=== PATIENT | female | born 1985 | race Caucasian/White ===

== ENCOUNTER 2023-11-28 17:45 | Emergency (ER) | payer BC, OTHER ==
[2023-11-28 17:50] VITALS: BP 133/85; PULSE 113; RESP 16; TEMP 98.1
--- NOTE | 2023-11-28 17:54 | ED ---
ENT HPI - General Chief complaint: Dental/Oral Stated complaint: sore throat, fever Time Seen by Provider: 11/28/23 17:54 Source: patient, RN notes reviewed Mode of arrival: ambulatory Limitations: no limitations - History of Present Illness Initial comments: This is a 37-year-old female presents emergency department chief complaint of sore throat for the past 2 days. Patient states that she has also been experiencing a dry cough during the night and bilateral extremity testing as well. She denies congestion, rhinorrhea, productive cough, fevers, or chills. She denies urinary symptoms, dysuria, chest pain, headache, nausea, or vomiting. Patient states that she feels that she may have strep throat. She took a dose of Motrin this morning with minimal relief. No other acute complaints at this time. - Related Data Allergies Allergy/AdvReac Type Severity Reaction Status Date / Time amoxicillin Allergy Rash/Hives Verified 11/28/23 17:47 Review of Systems ROS Statement: Those systems with pertinent positive or pertinent negative responses have been documented in the HPI. ROS Other: All systems not noted in ROS Statement are negative. Past Medical History Past Medical History: No Reported History History of Any Multi-Drug Resistant Organisms: None Reported Past Surgical History: Appendectomy Past Psychological History: No Psychological Hx Reported Smoking Status: Current some day smoker, Vaper Past Alcohol Use History: Occasional Past Drug Use History: None Reported General Exam Limitations: no limitations General appearance: alert, in no apparent distress Head exam: Present: atraumatic, normocephalic, normal inspection Eye exam: Present: normal appearance, PERRL, EOMI. Absent: scleral icterus, conjunctival injection, periorbital swelling Expanded Mouth exam: Present: normal external inspection Throat exam: tonsillomegaly, tonsillar exudate Neck exam: Present: lymphadenopathy Respiratory exam: Present: normal lung sounds bilaterally. Absent: respiratory distress, wheezes, rales, rhonchi, stridor Cardiovascular Exam: Present: regular rate, normal rhythm, normal heart sounds. Absent: systolic murmur, diastolic murmur, rubs, gallop, clicks GI/Abdominal exam: Present: soft, normal bowel sounds. Absent: distended, tenderness, guarding, rebound, rigid Extremities exam: Present: normal inspection, full ROM, normal capillary refill. Absent: tenderness, pedal edema, joint swelling, calf tenderness Skin exam: Present: warm, dry, intact, normal color. Absent: rash Course Vital Signs 11/28/23 17:47 Temperature 98.1 F Pulse Rate 113 H Respiratory 16 Rate Blood Pressure 133/85 O2 Sat by Pulse 98 Oximetry Medical Decision Making - Medical Decision Making Was pt. sent in by a medical professional or institution (, [facility], PUBLICITY EXPERT, urgent care, hospital, or long-term...) When possible be specific @ -No Did you speak to anyone other than the patient for history (EMS, parent, family, police, friend...)? What history was obtained from this source @ -No Did you review nursing and triage notes (agree or disagree)? Why? @ -I reviewed and agree with nursing and triage notes Were old charts reviewed (outside hosp., previous admission, EMS record, old EKG, old radiological studies, urgent care reports/EKG's, long-term records)? Report findings @ -No old charts were reviewed Differential Diagnosis (chest pain, altered mental status, abdominal pain women, abdominal pain men, vaginal bleeding, weakness, fever, dyspnea, syncope, headache, dizziness, GI bleed, back pain, seizure, CVA, palpatations, mental health, musculoskeletal)? @ -COVID 19, RSV, influenza, pneumonia, acute bronchitis, URI, this list is not all inclusive EKG interpreted by me (3pts min.). @ -none X-rays interpreted by me (1pt min.). @ -None done CT interpreted by me (1pt min.). @ -None done U/S interpreted by me (1pt. min.). @ -None done What testing was considered but not performed or refused? (CT, X-rays, U/S, labs)? Why? @ -X-ray was considered but deferred at this time. Patient states that she has been experiencing a dry cough that is worse at night and this is most consistent with postnasal drip. Minimal clinical concern for pulmonary process such as pneumonia. What meds were considered but not given or refused? Why? @ -None Did you discuss the management of the patient with other professionals (professionals i.e. FELIPE Awan, PUBLICITY EXPERT, lab, RT, psych nurse, clinical social work aide, cinder dump crane operator, teacher, service officer, case advocate)? Give summary @ -No Was smoking cessation discussed for >3mins.? @ -No Was critical care preformed (if so, how long)? @ -No Were there social determinants of health that impacted care today? How? (Homelessness, low income, unemployed, alcoholism, drug addiction, transportation, low edu. Level, literacy, decrease access to med. care, [facility], rehab)? @ -No Was there de-escalation of care discussed even if they declined (Discuss DNR or withdrawal of care, Hospice)? DNR status @ -No What co-morbidities impacted this encounter? (DM, HTN, Smoking, COPD, CAD, Cancer, CVA, ARF, Chemo, Hep., AIDS, mental health diagnosis, sleep apnea, morbid obesity)? @ -None Was patient admitted / discharged? Hospital course, mention meds given and route, prescriptions, significant lab abnormalities, going to OR and other pertinent info. @ -Discharged. 37-year-old female with sore throat body aches. On examination patient did have lymphadenopathy and tonsillar megaly with tonsillar exudates most notable of the left tonsils. Patient's vitals are stable upon arrival. She will be tested for strep and Cepheid. She is also provided with a dose of Toradol to combat bodyaches. Patient is negative for strep, COVID, flu, RSV. She is also provided with a dose of Solu-Medrol to aid in sore throat and tonsillomegaly. Recommend the patient continue to use symptomatic treatment at home cycling Tylenol Motrin, increasing oral rehydration and use of a humidifier at night. All questions answered at bedside and strict return parameters discussed with the patient she is verbalized understanding. Case discussed with Dr. Morales. Undiagnosed new problem with uncertain prognosis? @ -No Drug Therapy requiring intensive monitoring for toxicity (Heparin, Nitro, Insulin, Cardizem)? @ -No Were any procedures done? @ -No Diagnosis/symptom? @ -sore throat, viral infection, body aches Acute, or Chronic, or Acute on Chronic? @ -Acute Uncomplicated (without systemic symptoms) or Complicated (systemic symptoms)? @ -uncomplicated Side effects of treatment? @ -No Exacerbation, Progression, or Severe Exacerbation? @ -No Poses a threat to life or bodily function? How? (Chest pain, [place], [place], pneumonia, PE, COPD, DKA, ARF, appy, cholecystitis, CVA, Diverticulitis, Homicidal, Suicidal, threat to staff... and all critical care pts) @ -No - Lab Data Lab Results 11/28/23 11/28/23 Range/Units 17:58 17:58 Influenza Type A (PCR) Not Detected (Not Detectd) Influenza Type B (PCR) Not Detected (Not Detectd) RSV (PCR) Not Detected (Not Detectd) SARS-CoV-2 (PCR) Not Detected (Not Detectd) Group A Strep (PCR) NOT DETECTED (Not Detectd) Disposition Clinical Impression: Sore throat (viral), Body aches Disposition: HOME SELF-CARE Condition: Good Instructions (If sedation given, give patient instructions): Tonsillitis (ED) Is patient prescribed a controlled substance at d/c from ED?: No Referrals: None,Stated [Primary Care Provider] - 1-2 days Time of Disposition: 18:49
[2023-11-28] MEDS: KETOROLAC 15 MG/ML 1 ML VIAL IM STA (18:15)
[2023-11-28] MEDS: methylPREDNISolone SOD SUCCI 125 MG/2 ML VIAL IM ONE (19:04)
== END 2023-11-28 19:06 | disposition home or self-care (01) ==
LOC: EC 17:45
DX: J02.9 Acute pharyngitis, unspecified (principal); B34.9 Viral infection, unspecified; M79.10 Myalgia, unspecified site; F17.290 Nicotine dependence, other tobacco product, uncomplicated; Z88.0 Allergy status to penicillin
CPT/HCPCS: 87651; 87636; 99283; 96372 ×2; J1885; J2919